=== PATIENT | female | born 1945 | race Caucasian/White ===

== ENCOUNTER 2020-01-10 08:03 | Outpatient (CLI) | payer MEDICARE, SELFPAY ==
[2020-01-12 20:01] LABS: SARS-CoV-2 RNA Undetected (Undetected); SARS-CoV-2 Specimen Source Nasopharynx
== END 2020-01-10 08:23 ==
PROVIDERS: Visit Provider Family Medicine
DX: Z03.818 Encounter for observation for suspected exposure to other biological agents ruled out (principal)
CPT/HCPCS: U0003